=== PATIENT | female | born 1995 | race Caucasian/White ===

== ENCOUNTER 2017-01-30 09:46 | Emergency (ER) | payer OTHER ==
[2017-01-30 10:00] VITALS: BP 117/69
--- NOTE | 2017-01-30 10:12 | UC ---
Eye Complaint HPI - HPI Summary HPI Summary: pt presents with c/o left eye swelling, "itchyness", upper eyelid swelling X 2 days - History of Current Complaint Chief Complaint: UCEye Stated Complaint: EYE IRRITATION Time Seen by Provider: 01/30/17 10:04 Hx Obtained From: Patient Hx Last Menstrual Period: 01/02/17 ?: No Onset/Duration: Gradual Onset, Lasting Days - 2 Timing: Constant Severity Initially: Mild Severity Currently: Mild Associated Signs And Symptoms: Positive: Drainage (Clear) - Allergies/Home Medications Allergies/Adverse Reactions: Allergies Allergy/AdvReac Type Severity Reaction Status Date / Time No Known Allergies Allergy Verified 01/30/17 10:01 Home Medications: Home Medications Ibuprofen TAB* [Advil TAB*] 400 mg PO Q6H PRN 01/30/17 [History Confirmed ] PMH/Surg Hx/FS Hx/Imm Hx Previously Healthy: Yes - Surgical History Surgical History: None - Family History Known Family History: Positive: Other - positive [facility] for URI - Social History Alcohol Use: Occasionally Substance Use Type: None Smoking Status (MU): Never Smoked Tobacco Review of Systems Constitutional: Negative Skin: Negative Eyes: Eye Redness, Other - upper lid swelling, eye redness ENT: Negative Respiratory: Negative Cardiovascular: Negative Gastrointestinal: Negative Genitourinary: Negative Motor: Negative Neurovascular: Negative Musculoskeletal: Negative Neurological: Negative Psychological: Negative All Other Systems Reviewed And Are Negative: Yes Physical Exam Triage Information Reviewed: Yes Appearance: Well-Appearing Vital Signs: Initial Vital Signs Temp 98.7 F 01/30/17 09:58 Pulse 77 01/30/17 09:58 Resp 14 01/30/17 09:58 BP 117/69 01/30/17 09:58 Pulse Ox 100 01/30/17 09:58 Eye Exam: Other Eyes: Positive: Conjunctiva Clear, Other: - eye redness and upper eyelid swelling ENT Exam: Other ENT: Positive: Nasal congestion Neck exam: Normal Respiratory Exam: Normal Cardiovascular Exam: Normal Abdominal Exam: Normal Musculoskeletal Exam: Normal Neurological Exam: Normal Psychological Exam: Normal Skin Exam: Normal Eye Complaint Course/Dx - Differential Dx/Diagnosis Differential Diagnosis/HQI/PQRI: Conjunctivitis Provider Diagnoses: allergic conjunctivitis Discharge - Discharge Plan Condition: Stable Disposition: HOME Prescriptions: Loratadine [Loratadine Allergy Relief] 10 mg PO DAILY #14 tab Patient Education Materials: Conjunctivitis (ED) Referrals: [facility] [place] [facility] [Outside] Additional Instructions: Please use OTC antihistamine eye drops such as: Zatidor. Please follow directions as indicated by the drywall application supervisor.
== END 2017-01-30 10:24 | disposition home or self-care (01) ==
LOC: UCCORT 09:46
DX: H10.10 Acute atopic conjunctivitis, unspecified eye (principal)
CPT/HCPCS: 99202; G0463

== ENCOUNTER → 2019-05-25 | Emergency (ER) | payer OTHER | END | disposition home or self-care (01) | LOC: UCCORT 08:56 → OHCORT 08:56 | DX: Z02.1 Encounter for pre-employment examination (principal) ==